=== PATIENT | female | born 1955 | race Caucasian/White ===

== ENCOUNTER 2024-03-16 09:25 | Day surgery (SDC) | payer OTHER, MEDICARE ==
[2024-03-16] VITALS (14 sets, daily range): BP systolic 108–143; BP diastolic 60–81
[~2024-03-16] VITALS: Ht 157.5 cm; Wt 84.0 kg
[~2024-03-16 09:25] MED LIST: AMLO5 PO; ATOR20 PO; Amoxicillin500 MG PO; IBUP600 PO; Lactated Ringer's 1,000 ML IV SCH; ONDA4 PO; propofoL 40 ML IV ONE
[2024-03-16] MEDS ORDERED: FAMO20 PO (10:00)
[2024-03-16] MEDS ORDERED: CETI5 PO (10:00)
--- NOTE | 2024-03-16 10:14 | NUR ---
Ambulatory in Day Surgery History, Chart, Medications and Allergies reviewed before start of procedure. Pre-Op teaching done. Pt verbalizes understanding. Patient States Post-Procedure ride home has been arranged.
--- NOTE | 2024-03-16 11:06 | NUR ---
03/16/24 1106 Elizabeth Reeves HISTORY, CHART, MEDICATIONS AND ALLERGIES REVIEWED BEFORE START OF PROCEDURE. PATIENT CONFIRMS NPO STATUS AND AGREES WITH SCHEDULED PROCEDURE. 3-LEAD EKG REVIEWED WITH PHYSICIAN PRIOR TO START OF PROCEDURE. MONITOR INTACT WITH CONTINUOUS PULSE OXIMETRY,CAPNOGRAPHY, 3-LEAD EKG, INTERMITTENT BP. SUPPLEMENTAL O2 TO BE TITRATED THROUGHOUT PROCEDURE TO MAINTAIN O2 SATURATION ABOVE 90%. PATIENT DETERMINED TO BE ASA APPROPRIATE FOR PROPOFOL SEDATION PRIOR TO START OF PROCEDURE BY DR. GUPTA
--- NOTE | 2024-03-16 11:44 | NUR ---
PT TO DAY SURGERY STEP DOWN FROM COLONOSCOPY; BEDSIDE REPORT RECEIVED. PT IS AWAKE, ALERT AND ORIENTED; ABLE TO MOVE SELF IN BED. VSS. PT HAS NO COMPLAINTS AT THIS TIME. AT BEDSIDE.
--- NOTE | 2024-03-16 11:59 | NUR ---
PT DECLINES PO FLUIDS. Discharge instructions reviewed with patient. Patient verbalizes understanding. Copy given to patient to take home. Patient States Post-Procedure ride home has been arranged.
--- NOTE | 2024-03-16 12:04 | NUR ---
Patient up to Ambulate independently. Gait steady.
--- NOTE | 2024-03-16 12:05 | NUR ---
Discharged via wheelchair to private car for ride home.
== END 2024-03-16 12:06 | disposition home or self-care (01) ==
LOC: ORSCMMR 09:25 → ORD 10:30 → ORSCMMR 12:06
PROVIDERS: Internal Medicine Gastroenterology
PROC: 0DJD8ZZ Inspection of Lower Intestinal Tract, Via Natural or Artificial Opening Endoscopic (ICD-10-PCS; principal; 2024-03-16 10:30)
DX: Z12.11 Encounter for screening for malignant neoplasm of colon (principal); Z86.010 Personal history of colon polyps; Z95.0 Presence of cardiac pacemaker; Z79.899 Other long term (current) drug therapy; Z79.82 Long term (current) use of aspirin; Z68.34 Body mass index [BMI] 34.0-34.9, adult
CPT/HCPCS: J2704; J7120